=== PATIENT | male | born 1980 | race Two or more races ===

== ENCOUNTER 2024-06-16 13:27 | Emergency (ER) | payer OTHER ==
[~2024-06-16] VITALS: Ht 185.4 cm; Wt 136.5 kg
[2024-06-16 13:48] VITALS: TEMP 98
[2024-06-16] MEDS: HYDROcodone-ACET 5/325MG TAB PO ONE (13:56)
[2024-06-16] MEDS: TETANUS-DIPTH-ACEL PERTUSSIS 0.5ML SYR Tdap IM ONE (13:57)
--- NOTE | 2024-06-16 13:58 | ED.PDOC ---
History of Present Illness HPI Comments 44-year-old male with PMHx HTN, Asthma presents with a chief complaint of laceration. Patient states that he was using a skill saw and accidentally cut his left thumb. Patient now has a laceration to his left lateral radial thumb. Time Seen by MD: 13:45 Reviewed Notes: Medications, Allergies Allergies: Coded Allergies: NO KNOWN ALLERGIES (Unverified , 06/16/24) Information Source: Patient Mode of Arrival: Ambulatory Severity: Moderate Timing: Minutes Duration: Since onset Prehospital treatment: None Past Medical History PAST MEDICAL HISTORY: Asthma, HTN Surgical History: Denies all surgeries Family History Family History: Reviewed,noncontributory to illness Social History Smoker: Non-Smoker Alcohol: Denies ETOH Use Drugs: Denies Drug Use Constitutional: denies: chills, diaphoresis, fatigue, fever, malaise, sweats, weakness, others EENTM: denies: blurred vision, double vision, ear bleeding, ear discharge, ear drainage, ear pain, ear ringing, eye pain, eye redness, hearing loss, mouth pain, mouth swelling, nasal discharge, nose bleeding, nose congestion, nose pain, photophobia, tearing, throat pain, throat swelling, voice changes, others Respiratory: denies: cough, hemoptysis, orthopnea, SOB at rest, shortness of breath, SOB with excertion, stridor, wheezing, others Cardiovascular: denies: chest pain, dizzy spells, diaphoresis, Dyspnea on exertion, edema, irregular heart beat, left arm pain, lightheadedness, palpitations, PND, syncope, others Gastrointestinal: denies: abdomen distended, abdominal pain, blood streaked bowels, constipated, diarrhea, dysphagia, difficulty swallowing, hematemesis, melena, nausea, poor appetite, poor fluid intake, rectal bleeding, rectal pain, vomiting, others Genitourinary: denies: burning, dysuria, flank pain, frequency, hematuria, incontinence, penile discharge, penile sore, pain, testicle pain, testicle swelling, urgency, others Neurological: denies: dizziness, fainting, headache, left sided numbness, left sided weakness, numbness, paresthesia, pre-existing deficit, right sided numbness, right sided weakness, seizure, speech problems, tingling, tremors, weakness, others Musculoskeletal: denies: back pain, gout, joint pain, joint swelling, muscle pain, muscle stiffness, neck pain, others Integumetry: reports: laceration; denies: bruises, change in color, change in hair/nails, dryness, lesions, lumps, rash, wounds, others Allergic/Immunocompromised: denies: Difficulty Healing, Frequent Infections, Hives, Itching, others Hematologic/Lymphatic: denies: anemia, blood clots, easy bleeding, easy bruising, swollen glands, others Endocrine: denies: excessive hunger, excessive sweating, excessive thirst, excessive urination, flushing, intolerance to cold, intolerance to heat, unexplained weight gain, unexplained weight loss, others Psychiatric: denies: anxiety, bipolar disorder, depression, hopeless, panic disorder, schizophrenia, sleepless, suicidal, others All Other Systems: Reviewed and Negative Physical Exam General Appearance: No Apparent Distress, Normal HEENT: Normal ENT Inspection, Pharynx Normal, TMs Normal Neck: Full Range of Motion, Non-Tender, Normal, Normal Inspection Respiratory: Chest Non-Tender, Lungs Clear, No Accessory Muscle Use, No Respiratory Distress, Normal Breath Sounds Cardiovascular: No Edema, No JVD, No Murmur, No Gallop, Normal Peripheral Pulses, Regular Rate/Rhythm Breast Exam: Deferred Gastrointestinal: No Organomegaly, Non Tender, No Pulsatile Mass, Normal Bowel Sounds, Soft Genitalia: Deferred Pelvic: Deferred Rectal: Deferred Extremities: No calf tenderness, Normal capillary refill, Normal range of motion, Non-tender, No pedal edema, Other (LACERATION TO LEFT PROXIMAL RADIAL THUMB ) Musculoskeletal : Apperance: Normal Neurologic: Alert, hardware developer II-XII nml as Tested, No Motor Deficits, Normal Affect, Normal Mood, No Sensory Deficits Cerebellar Function: Normal Reflexes: Normal Skin: Dry, Normal Color, Warm Lymphatic: No Adenopathy Was a procedure done? Was a procedure done?: No Differential Dx Considerations may include: fracture, open fracture, displaced fracture, laceration, amputation X-Ray, Labs, Meds, VS Vital Signs Date Time Temp Pulse Resp B/P (MAP) Pulse Ox O2 Delivery O2 Flow Rate FiO2 06/16/24 15:34 152/91 06/16/24 14:14 Room Air* 0 21 06/16/24 13:48 98.0 101 16 162/93 (116) 97 98.0 Current Medications Medications (Trade) Dose Ordered Sig/[place] Route Start Time Stop Time Status Last Admin Diphtheria/ Tetanus/Acell Pertussis (Boostrix T-Dap) 0.5 ml ONCE ONCE IM 06/16/24 13:45 06/16/24 13:46 DC 06/16/24 13:57 Acetaminophen/ Hydrocodone Bitart ([place] 5/325MG Tab) 1 tab ONCE ONCE PO 06/16/24 13:45 06/16/24 13:46 DC 06/16/24 13:56 Fentanyl Citrate 25 mcg ONCE ONCE IV 06/16/24 15:30 06/16/24 15:31 DC 06/16/24 15:34 Time of 1ST Reevaluation: 14:15 Reevaluation 1ST: Unchanged Time of 2ND Reevaluation: 15:35 Reevaluation 2ND: Improved Patient Education/Counseling: Diagnosis, Treatment, Prognosis, Need For Follow Up Family Education/Counseling: Diagnosis, Treatment, Prognosis, Need For Follow Up, No Family Present Additional Information The following tests were ordered, and results were reviewed by me:left thumb xray I reviewed and agreed with the following test results read by other providers: radiology I discussed treatment and results with medical personnel and: Patient and i discussed the case with Dr Calderón at [facility], who agrees with ordering a stat ortho/hand consult at [place]. pt is splinted. wound irrigated, dressed and antibiotic, tdap given. pain controlled. he will follow up with hand specialist Departure 1 Departure Time of Disposition: 15:37 Impression: Primary Impression: Thumb laceration Qualified Codes: S61.112A - Laceration without foreign body of left thumb with damage to nail, initial encounter Additional Impression: Open fracture of finger Qualified Codes: S62.525B - Nondisplaced fracture of distal phalanx of left thumb, initial encounter for open fracture Disposition: HOME / SELF CARE / HOMELESS Condition: Good e-Prescriptions Hydrocodone-Acetaminophen (Hydrocodone Bitartrate/AC 10-325 mg) 1 Tab Tab 1 TAB PO Q8HP PRN for 3 Days, #9 TAB Prov: PARTH SALGUERO MD 06/16/24 Discharged With: Self, Relative Critical Care Note Critical Care Time?: No Stability Stability form required: No Heart Score Heart Score: Heart Score Response (Comments) Value History N/A 0 EKG N/A 0 Age N/A 0 Risk Factors N/A 0 Troponin N/A 0 Total 0 I personally scribed for PARTH SALGUERO MD ([email or web address]) on 06/16/24 at 13:58. Electronically submitted by Clayton Cloud ([email or web address]). PARTH SALGUERO MD Jun 16, 2024 13:58
--- NOTE | 2024-06-16 14:22 | DVH ---
CLINICAL INDICATION: injury TECHNIQUE: 3 radiographic views of the left hand were obtained. Comparison: None FINDINGS/IMPRESSION: Minimally displaced oblique fracture distal phalanx left thumb The visualized joint space is well maintained. The alignment is anatomical. There is no radiopaque foreign body.
[2024-06-16] MEDS ORDERED: cefTRIAXone W LIDOCAINE 1 GM IM IM ONE (15:00)
[2024-06-16] MEDS: fentaNYL CITRATE 100 MCG/2 ML VL IV ONE (15:34)
[2024-06-16 15:36] VITALS: BP 152/91; PULSE 81; RESP 18; O2SAT 95
[2024-06-16] MEDS ORDERED: HYDR-4798 PO (15:38)
[2024-06-16] MEDS ORDERED: CEPH500T PO (15:45)
== END 2024-06-16 15:50 | disposition home or self-care (01) ==
LOC: ER 13:27
DX: S62.522A Displaced fracture of distal phalanx of left thumb, initial encounter for closed fracture (principal); S61.012A Laceration without foreign body of left thumb without damage to nail, initial encounter; I10 Essential (primary) hypertension; J45.909 Unspecified asthma, uncomplicated; W31.2XXA Contact with powered woodworking and forming machines, initial encounter; X58.XXXA Exposure to other specified factors, initial encounter; Y93.89 Activity, other specified; Y92.89 Other specified places as the place of occurrence of the external cause; Y99.8 Other external cause status
CPT/HCPCS: 29130; 73140; 90471; 90715; 96374; 99285; J3010